=== PATIENT | female | born 1960 | race Caucasian/White ===

== ENCOUNTER → 2023-12-18 12:41 | Outpatient (REF) | payer BC, SELFPAY | LOC: HWWDC 12:41 | PROVIDERS: ATTENDING PHYSICIAN Internal Medicine | DX: Z12.31 Encounter for screening mammogram for malignant neoplasm of breast (principal) | CPT/HCPCS: 77063; 77067 ==

== ENCOUNTER → 2025-01-26 12:53 | Outpatient (REF) | payer BC, SELFPAY | LOC: HWWDC 12:53 | PROVIDERS: ATTENDING PHYSICIAN Nurse Practitioner Adult Health; FAMILY PHYSICIAN Internal Medicine | DX: Z12.31 Encounter for screening mammogram for malignant neoplasm of breast (principal) | CPT/HCPCS: 77063; 77067 ==